=== PATIENT | male | born 1980 | race Caucasian/White ===

== ENCOUNTER 2018-07-09 16:03 | Outpatient (CLI) | payer OTHER ==
--- NOTE | 2018-07-09 18:11 | RAD ---
CHEST TWO VIEWS: HISTORY: Routine chest x-ray for adoption process. COMPARISON: None. FINDINGS: Normal cardiac silhouette. Pulmonary vessels and hilum are normal. No consolidation or mass. No pn eumothorax or osseous abnormalities. IMPRESSION: No acute cardiopulmonary process. POS: H
== END 2018-07-09 16:04 | disposition home or self-care (01) ==
LOC: SCSRAD 16:03
PROVIDERS: ATTEND Family Medicine
DX: Z00.00 Encounter for general adult medical examination without abnormal findings (principal)
CPT/HCPCS: 36415; 71046; 80053; 80061; 81001; 84443; 85025

== ENCOUNTER 2022-05-26 09:34 | Outpatient (CLI) | payer BC, OTHER | END 2022-05-26 09:35 | disposition home or self-care (01) | LOC: SCSRAD 09:34 | PROVIDERS: ATTEND Family Medicine | DX: S83.421A Sprain of lateral collateral ligament of right knee, initial encounter (principal) ==

== ENCOUNTER 2022-06-23 11:21 | Outpatient (CLI) | payer BC | END 2022-06-23 11:22 | disposition home or self-care (01) | LOC: SCSRAD 11:21 | PROVIDERS: ATTEND Family Medicine | DX: M23.92 Unspecified internal derangement of left knee (principal) ==